=== PATIENT | female | born 1970 | race Caucasian/White ===

== ENCOUNTER 2017-03-21 13:55 | Day surgery (SDC) | payer OTHER ==
[~2017-03-21] VITALS: Ht 154.9 cm; Wt 53.7 kg
[~2017-03-21 13:55] MED LIST: CLINDAMYCIN HC300 MG PO; MOTRIN800 MG PO; NOHOMEMEDS; ZITHROMAX Z-PA250 MG PO
[2017-03-21 16:18] LABS: HEMATOCRIT 45.1 % (36.0-46.0); MCH 33.3 PG (29.0-34.0); MCV 100.9 FL (83-99); MEAN PLAT.VOLUME 8.7 uM^3 (9.5-12.4); PLATELET COUNT 436 K/uL (156-360); RBC DIS.WIDTH-CV 14.3 % (11.8-14.6); RBC DIS.WIDTH-SD 54.1 % (39-53); RED BLOOD COUNT 4.47 M/uL (3.80-5.20); WHITE BLOOD COUNT 15.4 K/uL (4.1-10.2)
[2017-03-21 16:27] LABS: CHLORIDE 104 mEq/L (99-109); POTASSIUM 3.9 mEq/L (3.7-5.4); SODIUM 138 mEq/L (136-147)
[2017-03-21 16:29] LABS: GLUCOSE 91 mg/dL (70-99)
[2017-03-21 16:30] LABS: ANION GAP 15 MEQ/L (2-14)
[2017-03-21 16:31] LABS: TOTAL BILIRUBIN 0.4 mg/dL (0.0-1.0)
[2017-03-21 16:33] LABS: ALKALINE PHOSPHATASE 74 IU/L (3-129); GFR ESTIMATE (CALCULATED) > 59 mL/min/
[2017-03-21 16:34] LABS: UREA NITROGEN (BUN) 7 mg/dL (9-23)
[2017-03-21 18:32] VITALS: BP 121/88
== END 2017-03-21 21:21 | disposition home or self-care (01) ==
LOC: EME 13:55 → SDC 18:36 → 2EAST 20:44
PROVIDERS: Nurse Practitioner Family
DX: S51.011A Laceration without foreign body of right elbow, initial encounter (principal); S56.221A Laceration of other flexor muscle, fascia and tendon at forearm level, right arm, initial encounter; F17.210 Nicotine dependence, cigarettes, uncomplicated; W17.89XA Other fall from one level to another, initial encounter; Y93.9 Activity, unspecified; Y92.009 Unspecified place in unspecified non-institutional (private) residence as the place of occurrence of the external cause
CPT/HCPCS: 73080; 80053; 85027; 86900; 86901; 94640; 99281; 99284; G0378; J0330; J0696; J1100; J2405; J3010; J7030; J7050

== ENCOUNTER 2018-01-01 16:04 | Inpatient (IN) | payer OTHER ==
[~2018-01-01] VITALS: Ht 154.9 cm; Wt 56.4 kg
[2018-01-01 16:13] LABS: BASOPHIL (%) 0.4 % (0-1); BASOPHIL COUNT 0.1 K/uL (0-0.1); EOSINOPHIL COUNT 0.2 K/uL (0-0.3); HEMATOCRIT 45.6 % (36.0-46.0); HEMOGLOBIN 14.9 G/DL (11.9-15.5); IMMATURE GRANULOCYTE (%) 0.6 % (0.0-0.7); LYMPHOCYTE (%) 23.7 % (15-42); LYMPHOCYTE COUNT 3.5 K/uL (1.0-2.8); MCH 30.7 PG (29.0-34.0); MCHC 32.7 G/DL (30.0-36.0); MONOCYTE (%) 6.1 % (3-12); MONOCYTE COUNT 0.9 K/uL (0-0.8); NEUTROPHIL (%) 68.2 % (45-76); NEUTROPHIL COUNT 9.9 K/uL (1.8-6.4); PLATELET COUNT 587 K/uL (156-360); RBC DIS.WIDTH-CV 15.9 % (11.8-14.6); RBC DIS.WIDTH-SD 55.4 % (39-53); RED BLOOD COUNT 4.85 M/uL (3.80-5.20); WHITE BLOOD COUNT 14.6 K/uL (4.1-10.2)
[2018-01-01 16:21] LABS: PTT 41.4 SEC (25-37)
[2018-01-01 16:27] LABS: AMYLASE 57 IU/L (1-118); CHLORIDE 100 mEq/L (99-109); POTASSIUM 4.1 mEq/L (3.7-5.4); SODIUM 135 mEq/L (136-147)
[2018-01-01 16:29] LABS: GLUCOSE 126 mg/dL (70-99)
[2018-01-01 16:32] LABS: SERUM ETHYL ALCOHOL < 10 mg/dL
[2018-01-01 16:33] LABS: CREATININE 0.9 mg/dL (0.6-1.3); GFR ESTIMATE (CALCULATED) > 59 mL/min/
[2018-01-01 16:34] LABS: UREA NITROGEN (BUN) 9 mg/dL (9-23)
[2018-01-01 16:35] LABS: TROP-I INTERPRETATION NEGATIVE; TROPONIN-I < 0.01 ng/mL (0.0-0.30)
[2018-01-01 16:36] LABS: LIPASE 14 U/L (1.0-51.0)
[2018-01-01 16:41] LABS: QUANTITATIVE HCG < 4.0 MIU/ML
[2018-01-01 19:01] VITALS: BP 108/83
[2018-01-01 20:01] VITALS: BP 136/97
[2018-01-01 21:17] VITALS: BP 131/89
[2018-01-01 21:51] VITALS: BP 135/92
[2018-01-01 21:54] LABS: BASOPHIL (%) 0.5 % (0-1); BASOPHIL COUNT 0.1 K/uL (0-0.1); EOSINOPHIL (%) 0.5 % (0-5); EOSINOPHIL COUNT 0.1 K/uL (0-0.3); HEMATOCRIT 42.8 % (36.0-46.0); IMMATURE GRANULOCYTE (%) 0.5 % (0.0-0.7); LYMPHOCYTE COUNT 1.7 K/uL (1.0-2.8); MCH 30.7 PG (29.0-34.0); MCHC 32.7 G/DL (30.0-36.0); MCV 93.9 FL (83-99); MONOCYTE COUNT 0.6 K/uL (0-0.8); NEUTROPHIL (%) 75.5 % (45-76); NEUTROPHIL COUNT 7.4 K/uL (1.8-6.4); PLATELET COUNT 484 K/uL (156-360); RBC DIS.WIDTH-CV 16.2 % (11.8-14.6); RBC DIS.WIDTH-SD 56.2 % (39-53); RED BLOOD COUNT 4.56 M/uL (3.80-5.20); WHITE BLOOD COUNT 9.8 K/uL (4.1-10.2)
[2018-01-01 22:12] VITALS: BP 141/86
[2018-01-01 23:02] VITALS: BP 145/89
[2018-01-02] VITALS (16 sets, daily range): BP systolic 101–150; BP diastolic 66–99
[2018-01-02 01:34] LABS: CREATINE KINASE 66 IU/L (1-294); TOTAL CK 66 IU/L (1-294)
[2018-01-02 01:39] LABS: TROP-I INTERPRETATION INDETERMINATE; TROPONIN-I 0.36 ng/mL (0.0-0.30)
[2018-01-02 01:40] LABS: CK-MB 3.1 ng/mL (0.0-4.9); CKMB RELATIVE INDEX 4.7 (0.0-3.9)
[2018-01-02 06:09] LABS: BASOPHIL (%) 0.3 % (0-1); BASOPHIL COUNT 0.1 K/uL (0-0.1); EOSINOPHIL (%) 0.5 % (0-5); EOSINOPHIL COUNT 0.1 K/uL (0-0.3); HEMATOCRIT 44.1 % (36.0-46.0); HEMOGLOBIN 14.1 G/DL (11.9-15.5); IMMATURE GRANULOCYTE (%) 0.6 % (0.0-0.7); LYMPHOCYTE (%) 8.6 % (15-42); LYMPHOCYTE COUNT 1.5 K/uL (1.0-2.8); MCH 30.1 PG (29.0-34.0); MONOCYTE (%) 4.8 % (3-12); MONOCYTE COUNT 0.8 K/uL (0-0.8); NEUTROPHIL (%) 85.2 % (45-76); NEUTROPHIL COUNT 14.6 K/uL (1.8-6.4); PLATELET COUNT 493 K/uL (156-360); RBC DIS.WIDTH-CV 16.2 % (11.8-14.6); RBC DIS.WIDTH-SD 56.6 % (39-53); RED BLOOD COUNT 4.69 M/uL (3.80-5.20); WHITE BLOOD COUNT 17.2 K/uL (4.1-10.2)
[2018-01-02 06:29] LABS: TROP-I INTERPRETATION INDETERMINATE; TROPONIN-I 0.32 ng/mL (0.0-0.30)
[2018-01-02 06:32] LABS: CHLORIDE 105 MEQ/L (99-109); CREATININE 0.7 MG/DL (0.6-1.3); GFR ESTIMATE (CALCULATED) > 59 mL/min/; HDL CHOLESTEROL 70 MG/DL (Desirable>=50); LDL CHOLESTEROL 116 mg/dL (Desirable<100); NON-HDL CHOLESTEROL 130 mg/dL (Desirable<160); SODIUM 137 MEQ/L (136-147); TOTAL CHOLESTEROL 200 mg/dL (Desirable<200); TRIGLYCERIDES 68 MG/DL (Normal: <150); UREA NITROGEN (BUN) 9 mg/dL (9-23)
[2018-01-02 06:51] LABS: GLUCOSE 74 mg/dL (70-99)
[2018-01-02 06:53] LABS: CREATINE KINASE 61 IU/L (1-294); TOTAL CK 61 IU/L (1-294)
[2018-01-02 07:16] LABS: CK-MB 3.4 ng/mL (0.0-4.9)
[2018-01-02 07:19] LABS: CKMB RELATIVE INDEX 5.6 (0.0-3.9)
[2018-01-02 12:27] LABS: TROP-I INTERPRETATION NEGATIVE; TROPONIN-I 0.23 ng/mL (0.0-0.30)
[2018-01-02 12:43] LABS: CREATINE KINASE 58 IU/L (1-294); TOTAL CK 58 IU/L (1-294)
[2018-01-02 12:58] LABS: HEMOGLOBIN A1c (GLYCOHEMOGLOB) 4.9 % (Below 5.7)
[2018-01-02 13:21] LABS: CK-MB 2.9 ng/mL (0.0-4.9)
[2018-01-03 00:08] VITALS: BP 104/60
[2018-01-03 02:45] VITALS: BP 106/65
[2018-01-03 05:40] LABS: HEMATOCRIT 46.8 % (36.0-46.0); HEMOGLOBIN 15.2 G/DL (11.9-15.5); MCH 30.6 PG (29.0-34.0); MCHC 32.5 G/DL (30.0-36.0); MCV 94.4 FL (83-99); PLATELET COUNT 483 K/uL (156-360); RBC DIS.WIDTH-CV 16.2 % (11.8-14.6); RBC DIS.WIDTH-SD 56.3 % (39-53); RED BLOOD COUNT 4.96 M/uL (3.80-5.20); WHITE BLOOD COUNT 10.1 K/uL (4.1-10.2)
[2018-01-03 06:08] LABS: CHLORIDE 103 MEQ/L (99-109); CREATININE 0.6 MG/DL (0.6-1.3); GFR ESTIMATE (CALCULATED) > 59 mL/min/; GLUCOSE 72 mg/dL (70-99); POTASSIUM 4.5 MEQ/L (3.7-5.4); SODIUM 135 MEQ/L (136-147); UREA NITROGEN (BUN) 7 mg/dL (9-23)
[2018-01-03 08:40] VITALS: BP 103/53
[2018-01-03] MEDS ORDERED: NITROSTAT0.4 MG SL (11:29)
[2018-01-03] MEDS ORDERED: NICOTINE PATCH1 EAC1 TD (11:29)
[2018-01-03] MEDS ORDERED: ASPIR-LOW81 MG PO (11:29)
[2018-01-03] MEDS ORDERED: BRILINTA90 MG PO (11:29)
[2018-01-03] MEDS ORDERED: LOPRESSOR25 MG PO (11:29)
[2018-01-03] MEDS ORDERED: ATORVASTATIN CA40 MG PO (11:29)
[2018-01-03] MEDS ORDERED: LISINOPRIL2.5 MG PO (11:29)
== END 2018-01-03 13:40 | disposition home or self-care (01) | DRG 247 ==
LOC: EME 16:04 → ENRESERV 16:22 → CATH 16:38 → ENRESERV 17:26 → 4EAST 17:33 → 2SOUTH 17:33 → 4WEST 17:33 → ENRESERV 01-02 10:53 → 4EAST 01-02 13:20
PROVIDERS: Family Medicine; Internal Medicine Cardiovascular Disease
DX: I21.02 ST elevation (STEMI) myocardial infarction involving left anterior descending coronary artery (principal); I25.10 Atherosclerotic heart disease of native coronary artery without angina pectoris; D72.829 Elevated white blood cell count, unspecified; F17.200 Nicotine dependence, unspecified, uncomplicated; Z71.6 Tobacco abuse counseling; Z82.49 Family history of ischemic heart disease and other diseases of the circulatory system
CPT/HCPCS: 80048; 80061; 81003; 82150; 82550; 82550 91; 82553; 83036; 83690; 84484; 84702; 85025; 85025 91; 85027; 85347; 85610; 85730; 86850; 86900; 86901; 87641; 90686; 93005; 93306; 94799; 99281; 99285; C1725; C1769; C1874; C1887; C1894; G0480; J0461; J1644; J2250; J2405; J3010; J3246; J7030